=== PATIENT | female | born 1955 | race Caucasian/White ===

== ENCOUNTER 2018-05-13 10:48 | Emergency (ER) | payer MEDICAID ==
[~2018-05-13] VITALS: Ht 172.7 cm; Wt 65.8 kg
[~2018-05-13 10:48] MED LIST: ALBU18 IN; AMIT50TA3 PO; ASPI-266 PO; CARI-277 PO; CIME-52 PO; GLYB5TAB8 PO; LISI-646 PO; TEMA15CA PO
[2018-05-13 11:07] VITALS: BP 188/61
[2018-05-13] MEDS ORDERED: HYDROcodone-ACET 10/325MG TAB PO ONE (14:15)
[2018-05-13] MEDS ORDERED: KETOROLAC TROMETH 60MG/2ML VIAL IM ONE (14:15)
== END 2018-05-13 14:18 | disposition home or self-care (01) ==
LOC: ER 10:48
DX: S42.292A Other displaced fracture of upper end of left humerus, initial encounter for closed fracture (principal); J44.9 Chronic obstructive pulmonary disease, unspecified; E11.9 Type 2 diabetes mellitus without complications; K21.9 Gastro-esophageal reflux disease without esophagitis; I10 Essential (primary) hypertension; M32.9 Systemic lupus erythematosus, unspecified; F17.210 Nicotine dependence, cigarettes, uncomplicated; F12.90 Cannabis use, unspecified, uncomplicated; F14.90 Cocaine use, unspecified, uncomplicated; Z88.0 Allergy status to penicillin; Z88.2 Allergy status to sulfonamides; Z79.82 Long term (current) use of aspirin; Z79.84 Long term (current) use of oral hypoglycemic drugs; Z79.899 Other long term (current) drug therapy; W01.198A Fall on same level from slipping, tripping and stumbling with subsequent striking against other object, initial encounter; Y93.89 Activity, other specified; Y99.8 Other external cause status; Y92.89 Other specified places as the place of occurrence of the external cause
CPT/HCPCS: 73030; 73090; 96372; 99283; J1885

== ENCOUNTER 2020-05-13 13:36 | Emergency (ER) | payer MEDICAID ==
[~2020-05-13] VITALS: Ht 172.7 cm; Wt 68.0 kg
[2020-05-13] MEDS ORDERED: KETOROLAC TROMETH 60MG/2ML VIAL IM ONE (14:45)
[2020-05-13] MEDS ORDERED: SODIUM CHLORIDE 0.9% 500 ML IV ONE (16:30)
[2020-05-13 17:27] LABS: Basophils # (auto) 0 10 ^3/uL (0-0.2); Basophils % (auto) 0.1 % (0.0-2.0); Eosinophils # (auto) 0 10 ^3/uL (0-0.8); Hematocrit 21.3 % (36.0-46.0); Red Cell Distribution Width 14.2 % (11.8-14.3)
[2020-05-13 17:29] LABS: Lymphocytes # (auto) 0.8 10 ^3/uL (0.4-5.4); Lymphocytes % (auto) 5.3 % (10.0-50.0); Mean Corpuscular Hemoglobin 29.3 pg (28.0-32.0); Mean Corpuscular Hgb Conc. 32.4 g/dL (32.0-36.0); Mean Corpuscular Volume 90.5 fL (80.0-100.0); Monocytes # (auto) 1.1 10 ^3/uL (0-1.3); Neutrophils # (auto) 13.3 10 ^3/uL (1.6-8.6); Neutrophils % (auto) 87.6 % (37.0-80.0); Platelet Count (auto) 230 10^3/uL (140-450); Red Blood Cells 2.35 10^6/uL (4.0-5.20); White Blood Cell 15.1 10^3/uL (4.4-10.8)
[2020-05-13 17:39] LABS: Albumin 2.7 g/dL (3.4-5.0); Calcium 8.3 mg/dL (8.5-10.1); Potassium 5.2 mmol/L (3.5-5.1)
[2020-05-13 17:42] LABS: Hemoglobin 6.9 g/dL (12.2-16.2)
[2020-05-13 17:43] LABS: BUN/Creatinine Ratio 24.5; Bilirubin, Total 0.8 mg/dL (0.2-1.0); Total Protein 6.1 g/dL (6.4-8.2)
[2020-05-13 17:51] LABS: INR 1.19 (0.9-1.15); Partial Thromboplastin Time 22.5 sec (23.0-31.2)
[2020-05-13] MEDS ORDERED: ONDANSETRON HCL 4 MG/2 ML VIAL IV ONE ×2 (18:00→19:45)
[2020-05-13] MEDS ORDERED: MORPHINE SULFATE 4 MG/ML SYR/VIAL IV ONE (18:00)
[2020-05-13] MEDS ORDERED: SODIUM CHLORIDE 0.9% 1,000 ML IV ONE (19:15)
[2020-05-13] MEDS ORDERED: KETAMINE 50mg/ML 10ml Vial (500mg/10ml) IV ONE (19:30)
[2020-05-13 20:19] VITALS: BP 154/51
[2020-05-13 20:34] VITALS: BP 141/64
[2020-05-13 20:49] VITALS: BP 138/63
[2020-05-13] MEDS ORDERED: IOHEXOL 300 MG/ML 100ML BOTTLE IJ ONE (20:54)
[2020-05-13] MEDS ORDERED: HYDROmorphone HCL 2 MG/ML VL ONE (22:12)
[2020-05-13] MEDS ORDERED: HYDROmorphone HCL 2 MG/ML VL IV ONE (22:15)
[2020-05-13 22:32] VITALS: BP 128/63
== END 2020-05-13 22:30 | disposition short-term general hospital (02) ==
LOC: ER 13:36 → EDBD 13:36 → ER 22:30
DX: S22.41XA Multiple fractures of ribs, right side, initial encounter for closed fracture (principal); J93.9 Pneumothorax, unspecified; Z20.828 Contact with and (suspected) exposure to other viral communicable diseases; J44.9 Chronic obstructive pulmonary disease, unspecified; I10 Essential (primary) hypertension; F31.9 Bipolar disorder, unspecified; K44.9 Diaphragmatic hernia without obstruction or gangrene; F17.210 Nicotine dependence, cigarettes, uncomplicated; Z88.0 Allergy status to penicillin; Z88.2 Allergy status to sulfonamides; Z88.8 Allergy status to other drugs, medicaments and biological substances; W01.0XXA Fall on same level from slipping, tripping and stumbling without subsequent striking against object, initial encounter; Y93.E1 Activity, personal bathing and showering; Y92.89 Other specified places as the place of occurrence of the external cause; Y99.8 Other external cause status
CPT/HCPCS: 36415; 36430; 71045; 71101; 71250; 80053; 85025; 85610; 85730; 86850; 86900; 86901; 86920; 87426; 93005; 96361; 96372; 96374; 96375; 96376; 99285; C9803; J1170; J1885; J2270; J2405; P9016; Q9967; U0003